=== PATIENT | male | born 1955 | race Caucasian/White ===

== ENCOUNTER 2022-03-18 23:17 | Inpatient (IN) | payer OTHER ==
[~2022-03-18] VITALS: Ht 175.3 cm; Wt 70.3 kg
--- NOTE | 2022-03-18 23:44 | NUR ---
found a vape device and cigarettes on the pt. this was turned over to security.
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
[2022-03-19] MEDS ORDERED: IV NS 1000 ML 1,000 ML IV ONE
[2022-03-19] MEDS ORDERED: KETOROLAC TROMETHAMINE 30 MG INJ IVP ONE
--- NOTE | 2022-03-19 00:50 | NUR ---
RT at bedside.
[2022-03-19] MEDS ORDERED: PROPOFOL 200 MG/20 ML BOTTLE ONE ×3 (00:56→18:50)
[2022-03-19] MEDS ORDERED: PROPOFOL 200 MG/20 ML BOTTLE IV ONE ×2 (01:00→01:30)
[2022-03-19] MEDS ORDERED: KETOROLAC TROMETHAMINE 30 MG INJ ONE (01:02)
[2022-03-19] MEDS ORDERED: MORPHINE SULFATE 2 MG/1 ML DISP.SYRIN ONE (01:02)
--- NOTE | 2022-03-19 01:05 | NUR ---
[facility] [address] [facility] attempted to reduce the pt's left hip as it is displaced. a total of 100mg of diprivan was given ivp. During this time there was Dr. Blair present in the room myself along with Klaus VELASQUEZ and respiratory therapy. Dr. Blair was unsucesful to place left hip and he janeenatley spoke with Dr. Gutierrez and the pt will be admitted to the hospital.
--- NOTE | 2022-03-19 01:15 | NUR ---
Pagevalentin Gutierrez for Ortho Consult.
[2022-03-19 01:20] LABS: HEMATOCRIT 35.9 % (36.7-47.1); MEAN CORPUSCULAR HEMOGLOBIN 29.4 uug (23.8-33.4); MEAN CORPUSCULAR VOLUME 87.4 fL (73.0-96.2); PLATELET COUNT (AUTO) 615 K/uL (152-348)
[2022-03-19 01:21] LABS: ALANINE AMINOTRANSFERASE 17 U/L (16-63); ALKALINE PHOSPHATASE 132 U/L (50-136); ASPARTATE AMINOTRANSFERASE 16 U/L (15-37); BILIRUBIN,DIRECT 0.1 mg/dL (0.0-0.2); BILIRUBIN,TOTAL 0.3 mg/dL (0.2-1.0); CARBON DIOXIDE 31 mmol/L (21-32); CHLORIDE 98 mmol/L (98-107); CREATININE 0.9 mg/dL (0.6-1.3); GLUCOSE 126 mg/dL (74-106); POTASSIUM 3.8 mmol/L (3.5-5.1); TOTAL PROTEIN, SERUM 7.5 g/dL (6.4-8.2); UREA NITROGEN, BLOOD 13 mg/dL (7-18)
[2022-03-19 01:32] LABS: ETHANOL < 3 MG/DL (0-0)
--- NOTE | 2022-03-19 01:34 | NUR ---
Dr. Blair speaking with Dr. Gutierrez for ortho consult.
--- NOTE | 2022-03-19 01:34 | NUR ---
Dr. Blair spoke with Dr. Gutierrez and will admit the pt and have the pt taken to the operating room later today to have the hip re-aligned under general anesthia.
[2022-03-19] MEDS ORDERED: MORPHINE SULFATE 2 MG/1 ML DISP.SYRIN IV ONE ×2 (01:45)
[2022-03-19] MEDS ORDERED: LORAZEPAM 2 MG/1 ML VIAL IV ONE (01:45)
[2022-03-19] MEDS ORDERED: LORAZEPAM 2 MG/1 ML VIAL ONE ×2 (01:47→23:01)
--- NOTE | 2022-03-19 02:08 | NUR ---
received a call from Gladys at [facility] gave her a update on pt and why pt is in the hospital.
[2022-03-19 03:02] LABS: *AMPHETAMINE, URINE POSITIVE (NEGATIVE); *CANNABINOID, URINE NEGATIVE (NEGATIVE); *COCCAINE, URINE NEGATIVE (NEGATIVE); *OPIATE, URINE POSITIVE (NEGATIVE); *PHENCYCLIDINE SCREEN,URINE NEGATIVE (NEGATIVE)
--- NOTE | 2022-03-19 03:35 | NUR ---
pt denies any pain. pt has a visitor but does have proof of vaccine card for covid so she is speaking to the pt on the phone.
--- NOTE | 2022-03-19 03:47 | NUR ---
a female claiming to the the of the pt is at the front desk agent yelling and says she wants to take her to go to [facility]. the pt says she is not the he says she is gf or friend. Dr. Blair and Rachel the er clerk telegraph service have explained multiple times that the pt has insurance for [facility] and the pt understands this and he is in agreement with going to [facility] for treatment.
[2022-03-19] MEDS ORDERED: HYDROMORPHONE 1 MG/1 ML DISP.SYRIN ONE (03:51)
[2022-03-19] MEDS ORDERED: HYDROMORPHONE 1 MG/1 ML DISP.SYRIN IV ONE (04:00)
[2022-03-19] MEDS ORDERED: PROM118S5 PO (04:10)
[2022-03-19] MEDS ORDERED: ALPR1TAB7 PO (04:10)
--- NOTE | 2022-03-19 04:14 | NUR ---
eugenio with [employer] gave verbal authorization for the pt to stay here. a call was placed to [facility]. pt will be admitted to med surg status.
--- NOTE | 2022-03-19 04:17 | NUR ---
Called [facility] to page Naga Robles NP.
--- NOTE | 2022-03-19 04:18 | NUR ---
Dr. Blair on panel call with Naga Robles NP.
[2022-03-19] MEDS ORDERED: ACETAMINOPHEN 325 MG TABLET PO PRN (04:45)
[2022-03-19] MEDS ORDERED: REMEDY ESSENTIAL ZINC PASTE 113 GM TP PRN (04:45)
[2022-03-19] MEDS ORDERED: MORPHINE SULFATE 2 MG/1 ML DISP.SYRIN IV PRN (04:45)
[2022-03-19] MEDS ORDERED: ONDANSETRON 4 MG/2 ML VIAL IV PRN (04:45)
[2022-03-19] MEDS ORDERED: MAGNESIUM HYDROXIDE 30 ML LIQUID UDC PO PRN (04:45)
--- NOTE | 2022-03-19 05:04 | NUR ---
report given to Will RN pt will go room 329A.
--- NOTE | 2022-03-19 06:38 | NUR ---
pt transported to room 329A via [facility] with all belongings. RN Will in room to accept the pt.
[2022-03-19 06:45] VITALS: BP 161/95
[2022-03-19] MEDS: PANTOPRAZOLE SODIUM 40 MG VIAL IV SCH (08:52)
[2022-03-19] MEDS ORDERED: IV LACTATED RINGERS SOLUTION 1,000 ML IV PRN (10:30)
[2022-03-19] MEDS: MORPHINE SULFATE 4 MG/1 ML DISP.SYRIN IV PRN (10:52)
[2022-03-19 11:34] VITALS: BP 126/91
--- NOTE | 2022-03-19 11:55 | NUR ---
Patient is alert, oriented x3, no sob, resp even nonlabored, skin warm and dry to touch, bed bath given, no skin issues noted, patient is kept NPO, surgery scheduled at 1500. left dislocations, started fluids as ordered, pain is managed to left hip with pain Meds as ordered, effective, patient is resting calmly. no acute distress noted. IJ line is intact and patent the left neck.
[2022-03-19] MEDS: LORAZEPAM 2 MG/1 ML VIAL IV PRN ×2 (12:19→23:10)
--- NOTE | 2022-03-19 14:15 | NUR ---
patient is picked up by OR nurses
[2022-03-19] MEDS ORDERED: ROCURONIUM BROMIDE 50 MG/5 ML VIAL ONE (14:20)
[2022-03-19] MEDS ORDERED: FENTANYL CITRATE 100 MCG/2 ML AMPUL ONE ×2 (14:20→16:56)
[2022-03-19] MEDS ORDERED: MIDAZOLAM HCL 2 MG/2 ML VIAL ONE ×2 (14:40→16:56)
[2022-03-19] MEDS ORDERED: MIDAZOLAM HCL 10 MG/2 ML VIAL ONE (14:40)
[2022-03-19] MEDS ORDERED: VANCOMYCIN HCL 500 MG VIAL ONE (17:01)
[2022-03-19] MEDS ORDERED: BUPIVACAINE/EPI PF 0.5% 10 ML VIAL ONE (17:17)
[2022-03-19] MEDS ORDERED: ONDANSETRON 4 MG/2 ML VIAL ONE (18:50)
[2022-03-19] MEDS ORDERED: SUCCINYLCHOLINE CHLORIDE 200 MG/10 ML VIAL ONE (18:50)
[2022-03-19] MEDS ORDERED: LIDOCAINE-MPF 2% 5 ML VIAL ONE (18:50)
[2022-03-19] MEDS ORDERED: GLYCOPYRROLATE 0.2 MG/ML VIAL ONE (18:50)
[2022-03-19] MEDS ORDERED: CEFAZOLIN 1 G VIAL ONE (18:50)
[2022-03-19] MEDS ORDERED: NEOSTIGMINE METHYLSULFATE 10 MG/10 ML VIAL ONE (18:50)
[2022-03-19] MEDS ORDERED: DEXAMETHASONE SOD PHOSPHATE 4 MG INJ ONE (18:50)
[2022-03-20] MEDS ORDERED: CEFAZOLIN 1 G VIAL ONE (00:41)
[2022-03-20] MEDS: CEFAZOLIN 1 G in IV DEXTROSE 5% 50 ML IV SCH ×2 (01:03→08:27)
[2022-03-20] MEDS ORDERED: IV D5W-0.45% NS +20 KCL 1,000 ML IV ONE (02:29)
[2022-03-20] MEDS: IV D5W-0.45% NS +20 KCL 1,000 ML IV PRN ×2 (02:42→08:27)
[2022-03-20 05:13] LABS: HEMATOCRIT 35.6 % (36.7-47.1); MEAN CORPUSCULAR HEMOGLOBIN 29.2 uug (23.8-33.4); MEAN CORPUSCULAR VOLUME 86.2 fL (73.0-96.2); PLATELET COUNT (AUTO) 650 K/uL (152-348)
[2022-03-20 05:27] LABS: CREATININE 0.9 mg/dL (0.6-1.3); MAGNESIUM 1.7 mg/dL (1.8-2.4); PHOSPHOROUS 3.4 mg/dL (2.5-4.9); POTASSIUM 4.1 mmol/L (3.5-5.1)
[2022-03-20] MEDS ORDERED: PANTOPRAZOLE SODIUM 40 MG VIAL ONE (08:52)
[2022-03-20] MEDS ORDERED: MORPHINE SULFATE 4 MG/1 ML DISP.SYRIN ONE (08:52)
[2022-03-20] MEDS: MORPHINE SULFATE 4 MG/1 ML DISP.SYRIN IV PRN ×2 (08:58→18:26)
--- NOTE | 2022-03-20 08:58 | NUR ---
Per ANDRY Cain, patient is to be downgraded to Med/Surg.
[2022-03-20] MEDS: PANTOPRAZOLE SODIUM 40 MG VIAL IV SCH (09:02)
[2022-03-20] MEDS ORDERED: MAGNESIUM OXIDE 400 MG TABLET PO ONE (09:15)
[2022-03-20] MEDS ORDERED: ENOXAPARIN SODIUM 40 MG/0.4 ML DISP.SYRIN SQ ONE (09:24)
[2022-03-20] MEDS ORDERED: MAGNESIUM OXIDE 400 MG TABLET ONE (09:24)
[2022-03-20] MEDS: ENOXAPARIN SODIUM 40 MG/0.4 ML DISP.SYRIN SQ SCH (09:27)
--- NOTE | 2022-03-20 12:36 | NUR ---
Gave report to RON Huynh.
--- NOTE | 2022-03-20 12:38 | NUR ---
Patient to go to room 312.
[2022-03-20] MEDS ORDERED: LORAZEPAM 2 MG/1 ML VIAL ONE (12:41)
[2022-03-20] MEDS: LORAZEPAM 2 MG/1 ML VIAL IV PRN (12:46)
[2022-03-20 14:10] VITALS: BP 154/88
[2022-03-20 16:03] VITALS: BP 157/86
--- NOTE | 2022-03-20 17:44 | NUR ---
Pt alert and oriented x 4. Right IJ x3 lines flushed well w/o any resistance. Left prior IJ site still swollen and bulge noted - no bleeding noted. Left Hip surgical site with original dressing intact ice applied to help manage with pain. Abduction pillow applied in between pt's leg. F/c draining gamaliel colored urine. PT is in no acute distress. Call light is within reach.
[2022-03-20 20:09] VITALS: BP 156/82
[2022-03-20] MEDS: HYDROCODONE/APAP 5-325MG TABLET PO PRN (20:17)
[2022-03-20] MEDS: NICOTINE 21 MG/24HR PATCH TD SCH (20:32)
[2022-03-21] MEDS: LORAZEPAM 2 MG/1 ML VIAL IV PRN ×3 (00:46→14:45)
[2022-03-21] MEDS: HYDROCODONE/APAP 5-325MG TABLET PO PRN ×2 (06:19→22:07)
[2022-03-21 06:42] VITALS: BP 154/88
[2022-03-21] MEDS: ENOXAPARIN SODIUM 40 MG/0.4 ML DISP.SYRIN SQ SCH (08:57)
[2022-03-21] MEDS: PANTOPRAZOLE SODIUM 40 MG VIAL IV SCH (08:57)
[2022-03-21] MEDS: NICOTINE 21 MG/24HR PATCH TD SCH (08:57)
--- NOTE | 2022-03-21 10:55 | NUR ---
Alert and oriented x4. Denies sob. right IJ 3 lumens flushed without resistance. Swelling still noted on prior left ij no bleeding noted. Left surgical site with original dressing intact no bleeding noted. Ice applied as tolerated. Abduction pillow in place stated understanding. FC draining gamaliel urine no hematuria noted. Walked with rehab no sob noted. Needs attended. Call light in within reach.
[2022-03-21] MEDS ORDERED: HYDR-3972 PO (11:59)
[2022-03-21] MEDS ORDERED: DOCU-141 PO (11:59)
[2022-03-21 12:00] VITALS: BP 138/88
--- NOTE | 2022-03-21 12:22 | NUR ---
Seen and examined by ANDRY Rosenthal with order to collect urine and may remove gimenez catheter after per patient's request. Order carried.
[2022-03-21] MEDS: IV D5W-0.45% NS +20 KCL 1,000 ML IV PRN (12:33)
[2022-03-21 12:35] LABS: MEAN CORPUSCULAR HEMOGLOBIN 28.5 uug (23.8-33.4); MEAN CORPUSCULAR VOLUME 86.9 fL (73.0-96.2); PLATELET COUNT (AUTO) 639 K/uL (152-348)
--- NOTE | 2022-03-21 12:39 | NUR ---
urine obtained and gimenez removed. no bleeding noted.
[2022-03-21 12:47] LABS: CREATININE 0.8 mg/dL (0.6-1.3); POTASSIUM 3.7 mmol/L (3.5-5.1)
[2022-03-21 13:00] LABS: *BILIRUBIN,URIN NEGATIVE (NEGATIVE); *BLOOD, URINE 3+ (NEGATIVE); *CLARITY,URINE CLEAR (CLEAR); *COLOR,URINE YELLOW (YELLOW); *KETONES,URINE NEGATIVE (NEGATIVE); LEUKOCYTE ESTERASE ,URINE TRACE (NEGATIVE); NITRITE, URINE NEGATIVE (NEGATIVE); PH,URINE 7.5 (5.0-8.0); UGLUCOSE NEGATIVE (NEGATIVE)
[2022-03-21] MEDS: MORPHINE SULFATE 4 MG/1 ML DISP.SYRIN IV PRN ×2 (13:16→18:01)
[2022-03-21 14:25] LABS: RBC,URINE 50-80 /HPF (0-3); SQUAMOUS EPITHELIAL CELL,UR FEW /HPF (NONE SEEN)
[2022-03-21 14:26] LABS: BACTERIA,URINE NONE SEEN /HPF (NONE SEEN)
--- NOTE | 2022-03-21 14:43 | NUR ---
Social work consult was requested for a patient on [facility] to assess current living situation. Patient is a 66-year-old male admitted for left hip dislocation. Patient is alert and oriented X3. Patient could not state the date. Patient presents with euthymic mood and full range of affect. Patient presents with poor judgement and insight. Patient states his primary contact lens blocker is his friend, Johan Arreguin ([phone]) who lives close by and they have a good relationship. Patient states he currently lives in a [place] on [address] [place] [address] with his girlfriend, Melinda. Patient states his girlfriend, Melinda doesnt have a phone. Patient states he does not have any medical equipment at home, does not receive home health services and is currently driving. Patient states he is unemployed and is receiving social security. Patient states he has a history of substance abuse but is currently sober. Patient stated, I did drugs a long time ago. Toxicology report is positive for opiates and amphetamines. SW discussed substance abuse treatment with patient. SW provided the patient resources for substance abuse from [address] [address] ([phone]), [facility] [address] [facility] [address] ([phone]), and [address] [address] ([phone]). SW also provided the number for [facility] ([phone]). Patient appears unmotivated for change. SW placed substance abuse resources in patients chart. Patient denied a history of psychiatric diagnosis. Patient denied suicidal or homicidal ideation. Patient states his discharge plan is to go home to [address] [place] [address].
[2022-03-21 15:56] VITALS: BP 151/87
--- NOTE | 2022-03-21 18:30 | NUR ---
Patient refused to go to snf. R/b explained including that it is still unsafe for him to go home at this time. Patient verbalized "I will make it safe" and verbalized understanding but adamant wanting to go home. ANDRY Rosenthal is aware that patient wants to leave AMA. Waiting for mirnae to pick him up. Addendum: 03/21/22 at 1833 by AMIRA WILLOUGHBY RN Incorrect
--- NOTE | 2022-03-21 18:34 | NUR ---
Patient refused to go to snf. R/b explained including that it is still unsafe for him to go home at this time. Patient verbalized "I will make it safe" and verbalized understanding but adamant wanting to go home. ANDRY Rosenthal is aware that patient wants to leave AMA. Waiting for fiancee to pick him up.
--- NOTE | 2022-03-21 19:30 | NUR ---
Received call from annetta that she will be here by 2029 to burr picker pt.
[2022-03-21 20:00] VITALS: BP 156/84
--- NOTE | 2022-03-21 21:00 | NUR ---
IJ cath removed. Cath tip intact and complete. Sent cath tip for culture.
--- NOTE | 2022-03-21 22:00 | NUR ---
Pt complaining of pain. Analgesic given by mouth.
[2022-03-22 04:00] VITALS: BP 135/82
--- NOTE | 2022-03-22 07:05 | NUR ---
Discharged via wheelchair. Picked up by Johan (friend) via private car. Pt in fair condition. IJ cath removed. IJ cath sent to lab. ID band removed. All belongings including walker were given to pt.
== END 2022-03-22 07:00 | disposition left against medical advice (07) | DRG 468 ==
LOC: ER 23:45 → MEDSURG3 03-19 05:44 → TELE3 03-19 17:23 → TRANSITION 03-19 19:30 → MEDSURG3 03-20 12:50
PROVIDERS: ADMIT Nurse Practitioner Acute Care; ATTEND Nurse Practitioner Acute Care
PROC: 0SWS0JZ Revision of Synthetic Substitute in Left Hip Joint, Femoral Surface, Open Approach (ICD-10-PCS; principal; 2022-03-19)
DX: T84.021A Dislocation of internal left hip prosthesis, initial encounter (principal); D72.829 Elevated white blood cell count, unspecified; D75.839 Thrombocytosis, unspecified; E83.42 Hypomagnesemia; F17.210 Nicotine dependence, cigarettes, uncomplicated; F15.10 Other stimulant abuse, uncomplicated; Y83.8 Other surgical procedures as the cause of abnormal reaction of the patient, or of later complication, without mention of misadventure at the time of the procedure; Y92.009 Unspecified place in unspecified non-institutional (private) residence as the place of occurrence of the external cause; Z20.822 Contact with and (suspected) exposure to COVID-19; Y79.2 Prosthetic and other implants, materials and accessory orthopedic devices associated with adverse incidents; W18.30XA Fall on same level, unspecified, initial encounter; Y93.9 Activity, unspecified
CPT/HCPCS: 36415; 71045; 73502; 73503; 83735; 84100; 85025; 87086; 93005; 97161; A4649; A4663; C9113; G0378; G0480; G0500; J0330; J0690; J1100; J1170; J1650; J1885; J2060; J2250; J2270; J2405; J3010; J3370; J3490; J7040; J7120

== ENCOUNTER 2025-04-29 13:20 | Emergency (ER) | payer OTHER, MEDICAID ==
[~2025-04-29] VITALS: Ht 175.3 cm; Wt 68.0 kg
[~2025-04-29 13:20] MED LIST: ALPR1TAB7 PO; DOCU-141 PO; HYDR-3972 PO; PROM118S5 PO
[2025-04-29] MEDS: IV NORMAL SALINE 1000 ML BAG IV ONE (13:45)
[2025-04-29 13:59] LABS: PLATELET COUNT (AUTO) 596 K/uL (152-348); RED BLOOD CELL COUNT(AUTO) 3.97 MIL/uL (4.06-5.63); RED CELL DISTRIBUTION WIDTH 18.2 % (12.1-16.2); WHITE BLOOD COUNT (AUTO) 11.1 K/uL (3.6-10.2)
[2025-04-29 14:20] LABS: ETHANOL < 3 MG/DL (0-10)
[2025-04-29 14:36] LABS: CREATININE 1.0 mg/dL (0.6-1.3); SODIUM SERUM 138 mmol/L (136-145); UREA NITROGEN, BLOOD 14 mg/dL (7-18)
[2025-04-29 14:42] LABS: ASPARTATE AMINOTRANSFERASE 24 U/L (15-37); TOTAL PROTEIN, SERUM 8.1 g/dL (6.4-8.2)
[2025-04-29 14:43] LABS: *BILIRUBIN,URIN 1+ (NEGATIVE); *BLOOD, URINE TRACE (NEGATIVE); *CLARITY,URINE CLOUDY (CLEAR); *COLOR,URINE YELLOW (YELLOW); *KETONES,URINE 2+ (NEGATIVE); *PROTEIN,URINE 1+ (NEGATIVE); *UROBILINOGEN,URINE 2.0 E.U./dl (NORMAL); LEUKOCYTE ESTERASE ,URINE 3+ (NEGATIVE); NITRITE, URINE POSITIVE (NEGATIVE); UGLUCOSE NEGATIVE (NEGATIVE)
[2025-04-29 14:54] LABS: *AMPHETAMINE, URINE POSITIVE (NEGATIVE); *BARBITURATE, URINE NEGATIVE (NEGATIVE); *BENZODIAZEPINE, URINE NEGATIVE (NEGATIVE); *CANNABINOID, URINE NEGATIVE (NEGATIVE); *COCCAINE, URINE POSITIVE (NEGATIVE); *OPIATE, URINE NEGATIVE (NEGATIVE); *PHENCYCLIDINE SCREEN,URINE NEGATIVE (NEGATIVE); FENTANYL, URINE POSITIVE (NEGATIVE)
[2025-04-29 15:00] LABS: SQUAMOUS EPITHELIAL CELL,UR FEW /HPF (NONE SEEN)
[2025-04-29 15:01] LABS: URINE AMORPHOUS URATE MANY /HPF
[2025-04-29] MEDS ORDERED: CEFTRIAXONE /D5W 50ML IVPB **ER PYXIS IV ONE (17:13)
[2025-04-29] MEDS ORDERED: VANCOMYCIN IV 200 ML ONE (19:38)
[2025-04-29] MEDS: VANCOMYCIN IV 1,000 MG in IV DEXTROSE 5% 250 ML IV ONE (19:40)
[2025-04-29 20:25] VITALS: BP 159/99; O2SAT 99
== END 2025-04-29 22:18 ==
LOC: ER 13:20
DX: R41.82 Altered mental status, unspecified (principal); L89.310 Pressure ulcer of right buttock, unstageable; R06.02 Shortness of breath; F15.90 Other stimulant use, unspecified, uncomplicated; F17.200 Nicotine dependence, unspecified, uncomplicated; G82.20 Paraplegia, unspecified; I45.10 Unspecified right bundle-branch block; Z79.899 Other long term (current) drug therapy; Z60.2 Problems related to living alone
CPT/HCPCS: 71045; 83605; 84443; 84484; 85025; 85730; 87040; 87086; A4606; A4663; G0480; J0696; J3373; J7040